=== PATIENT | female | born 1965 | race Two or more races ===

== ENCOUNTER 2018-08-17 13:25 | Day surgery (SDC) | payer OTHER ==
[2018-08-17] MEDS ORDERED: PROPOFOL 60 ML (16:13)
[2018-08-17] MEDS ORDERED: LIDOCAINE 2% (SDV) 5 ML INJ (16:13)
[2018-08-17] MEDS ORDERED: FENTAnyl 50 MCG/ML VIAL IV (17:00)
[2018-08-17] MEDS ORDERED: ONDANSETRON 4 MG INJ IV (17:00)
== END 2018-08-17 18:22 | disposition home or self-care (01) ==
LOC: GIL 13:25
DX: Z12.11 Encounter for screening for malignant neoplasm of colon (principal); D12.3 Benign neoplasm of transverse colon; K64.8 Other hemorrhoids; E78.00 Pure hypercholesterolemia, unspecified
CPT/HCPCS: 45385; 84703; 88305

== ENCOUNTER 2019-02-07 10:50 | Day surgery (SDC) | payer OTHER ==
[2019-02-07] MEDS ORDERED: LIDOCAINE 2% (SDV) 5 ML INJ (13:50)
[2019-02-07] MEDS ORDERED: ETOMIDATE 20 MG INJ (13:50)
== END 2019-02-07 17:45 | disposition home or self-care (01) ==
LOC: GIL 10:50
DX: K29.30 Chronic superficial gastritis without bleeding (principal); K20.8 Other esophagitis; I10 Essential (primary) hypertension; E78.5 Hyperlipidemia, unspecified; E66.01 Morbid (severe) obesity due to excess calories; Z68.41 Body mass index [BMI] 40.0-44.9, adult
CPT/HCPCS: 43239; 88305; 88312